=== PATIENT | female | born 1995 | race Caucasian/White ===

== ENCOUNTER 2017-06-15 14:39 | Emergency (ER) | payer SELFPAY ==
[~2017-06-15] VITALS: Ht 154.9 cm; Wt 48.9 kg
[2017-06-15 14:52] VITALS: BP 108/74
[2017-06-15] MEDS ORDERED: HYDROcodone/APAP 5/325 TABLET PO STA (15:56)
[2017-06-15] MEDS ORDERED: HYDROcodone/APAP 5/325 TABLET ONE (16:00)
== END 2017-06-15 17:14 | disposition home or self-care (01) ==
LOC: ED 16:10
DX: S63.521A Sprain of radiocarpal joint of right wrist, initial encounter (principal); J45.909 Unspecified asthma, uncomplicated; F17.210 Nicotine dependence, cigarettes, uncomplicated; W18.39XA Other fall on same level, initial encounter; Y93.89 Activity, other specified; Y92.098 Other place in other non-institutional residence as the place of occurrence of the external cause; Y99.8 Other external cause status
CPT/HCPCS: 99284